=== PATIENT | female | born 2000 | race Two or more races ===

== ENCOUNTER 2024-11-25 08:16 | Outpatient (AMB) | payer BC, SELFPAY ==
[2024-11-25 08:30] VITALS: BP 107/74; PULSE 75; RESP 17; TEMP 37.1; O2SAT 98; BMI 26.8
--- NOTE | 2024-11-25 08:30 | AMB.GYNCLNOT ---
Vital Signs 11/25/24 08:30 Height 1.45 m Height Method Stated Weight 56.245 kg Weight Measurement Method Standing Scale BMI 26.8 BP 107/74 Blood Pressure Source Automatic Cuff Blood Pressure Location Right Upper Arm Position Sitting Respiration 17 Pulse 75 Pulse Source Monitor Temp 98.7 F Temp Source Temporal Artery Scan Pulse Oximetry (%) 98 Oxygen Delivery Method Room Air Allergies/Home Meds Allergies & Medications Allergies morphine Allergy (Intermediate, Uncoded 11/25/24 08:31) racoon face Medication Reconciliation polyethylene glycol 3350 17 gram/dose oral powder (Miralax) 4 g PO QDAY 11/25/24 [History Confirmed 11/25/24] Intake Visit Data Collection New Patient or Established: New Patient (never been to [facility]) Reason for Visit:: ANNEALED LABIA & HEMATOCOLPOS THIRD OPINION Seen by Clinical Staff ONLY (RN/MA): No Instructor Substitute Cosmetology Required: No Do You Feel Safe at Home: Yes Authorities Contacted: N/A PCP or OBGYN visit in last 3 months: No Hx Now: No Are you currently on any form of Control: Yes Pain Present Currently: No Pain Scale Used: Barnett-Sherwood/Numerical Pain scale:: 0 Smoking Status Smoking Status: Never smoker 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 1. Little interest or pleasure in doing things: not at all 2. Feeling down, depressed, or hopeless: not at all Total score: 0 PHQ-9 3. Trouble falling or staying asleep, or sleeping too much: Not at all 4. Feeling tired or having little energy: Not at all 5. Poor appetite or overeating: Not at all 6. Feeling bad about yourself - or that you are a failure or have let yourself or your family down: Not at all 7. Trouble concentrating on things, such as reading the newspaper or watching television: Not at all 8. Moving or speaking so slowly that other people could have noticed? - Or the opposite - being so fidgety or restless that you have been moving around a lot more than usual: not at all 9. Thoughts that you would be better off or of hurting yourself in some way: Not at all Total score: 0 If you checked off any problems, how difficult have these problems made it for you to do your work, take care of things at home, or get along with other people?: not difficult at all Source: Developed by Drs. Cachorro Zhou, Mague Pacheco, Dilan Crook and colleagues, with an educational brian from [employer]. Depression screen completed yes Social History Living Situation History Marital Status: Unknown Lives With: Family Housing: House Tobacco History Smoking Status: Never smoker Second Hand Smoke Exposure: No Alcohol History Alcohol Intake: Never Domestic Abuse History Do You Feel Safe at Home: Yes History of Present Illness HPI Narrative Franny Spencer, a 14-month patient with a cardiac condition, presents with complications from a severe perineal tear during vaginal delivery. The patient reports that during her delivery on September 23 of the previous year, she experienced significant tearing, which led to excessive bleeding. The attending physician attempted to stop the bleeding but inadvertently sewed the patient all the way up, resulting in fusion of the torn tissues during healing. Three months post-delivery, when attempting to get a pap smear, it was discovered that the vaginal opening was completely closed. Dr. Romano made a small incision, which released a large amount of accumulated menstrual blood. The patient was then referred to Dr. Shaw, her primary farm crew leader, who was unable to provide further treatment and suggested going to the ER if problems persisted. The patient reports that she has not had any imaging studies done since the delivery. She expresses frustration with the lack of proper follow-up care and the prolonged duration of her condition. The patient's mother, who accompanies her, confirms the details of the medical history and expresses concern about the backed-up menstrual blood and the need for urgent intervention. The patient's cardiac condition is noted as a limiting factor for future pregnancies, with her center aisle cashier advising against natural childbirth in the future due to the associated stress on her heart. Obstetric History: - GTPAL: G1 T1 L1 - history: - Delivered a child 14 months ago (September 24, 2023) via vaginal delivery - Complications: severe perineal tear with significant bleeding - Delivered by Dr. Brea Clemens Medical History: - Cardiac issue (unspecified) Surgical History: - Vaginal delivery on September 24, 2023, complicated by severe perineal tear and subsequent over-repair leading to complete closure of the vaginal opening - Minor surgical procedure 3 months post-delivery (December 2023) to create a small opening in the fused vaginal tissue, performed by Dr. Romano Social History: - Children: Has a 85-[id number] child ROS: Genitourinary: Positive for menstrual blood backing up. Exam Narrative Physical exam: Complete agglutination of labia minora with pinpoint opening with hematocolpos General General Appearance: alert, in no apparent distress and healthy appearing Head Head exam: atraumatic Neck Neck exam: Present normal inspection and trachea midline Chest Chest inspection: Present normal inspection and symmetric chest wall rise External exam: Present normal external exam; Absent tenderness Neuro Neurological exam: Present oriented X3 Psych Psychiatric exam: Present normal affect and normal mood Office Procedures OB Clinic LOC & Office Proc's Nursing/Assessment Patient Status: Initial/New Patient OB Clinic Nursing Assessment: Medication Reconciliation, Update PMH in EMR and Vital Signs OB Clinic Coordination of Care: Complex Care and Chronic Disease 1-5, Consent,records obtained, informed consent, Education Simp Pt/Fam, Lab and Imaging orders and Staff clarify orders New Patient Charge New Patient Point Assignment: 1099 New Patient Point Charge: RESIDENCE HALL DIRECTOR Level 3 (4559-7970) Assessment & Plan Diagnosis / Problem List (1) Labial adhesion, acquired: Status: Acute (2) Disruption of perineal obstetric wound: Status: Acute Plan perineal fusion with hematocolpos Assessment: - Severe perineal tearing during vaginal delivery on September 24, 2023 - Fusion of vaginal tissues during healing - Prevented normal menstrual flow, causing hematocolpos - Previous attempt to create opening released retained menstrual blood - Condition persisted for over a year without definitive treatment - Visual examination confirms fusion of vaginal tissues Plan: - Schedule urgent surgical reconstruction under general anesthesia - Preoperative placement of urinary catheter for bladder marking - Surgical separation of fused tissues - Debridement and fresh repair of perineal tissues - Placement of intravaginal packing to prevent re-fusion during healing - Gradual removal of packing as healing progresses - Anticipate 2-3 weeks recovery time - Patient education provided on postoperative expectations: ? Ability to ambulate ? Use of sanitary pads ? Driving permitted - Informed consent obtained, discussing risks, benefits, and alternatives of the procedure - Follow-up to be scheduled after surgery for packing removal and healing assessment Cardiac condition Assessment: - Patient reports cardiac condition precludes future pregnancies due to associated stress - Condition initially warranted consideration of section for previous delivery Plan: - Recommend against future pregnancies due to cardiac condition - Advise section for any potential future deliveries, if occurs despite recommendations
== END 2024-11-25 09:31 | disposition home or self-care (01) ==
LOC: HODSOBC 08:16
PROVIDERS: Supervising Provider Obstetrics & Gynecology; Visit Provider Obstetrics & Gynecology
DX: O90.1 Disruption of perineal obstetric wound (principal)
CPT/HCPCS: 99203; G0463

== ENCOUNTER 2024-12-12 12:22 | Observation (INO) | payer BC, SELFPAY ==
[2024-12-11 08:32] VITALS: BMI 25.8
--- NOTE | 2024-12-11 08:58 | EKG_ITS ---
[facility] Test Date: 2024-12-11 Pat Name: PARAG LINN Department: Room: - Gender: Female Flower Stripper: ELIZABETH : 2000 Requested By: Rosendo Peralta Order Number: [id number] Reading MD: Rsoendo Peralta Measurements Intervals Marine Rate: 63 P: 40 MT: 119 QRS: 74 QRSD: 101 T: 54 QT: 410 QTc: 421 Interpretive Statements SINUS RHYTHM WITH SHORT MT INTERVAL No previous ECG available for comparison /store/S0/[id number]/ecg/[id number].pdf
[2024-12-11 09:22] LABS: Basophils # (Auto) 0.0 Thou/mm3 (0.0-0.2); Basophils % (Auto) 1 % (0-2.5); Eosinophils # (Auto) 0.3 Thou/mm3 (0.0-0.5); Eosinophils % (Auto) 4 % (0-10); Hematocrit 38.3 % (36.0-46.0); Hemoglobin 11.8 g/dL (12.0-16.0); Immature Granulocytes Auto 0.01 Thou/mm3 (0.00-0.00); Lymphocytes # (Auto) 1.7 Thou/mm3 (1.0-4.8); Lymphocytes % (Auto) 27 % (10-50); Mean Corpuscular HGB Conc 30.8 g/dl (31.0-37.0); Mean Corpuscular Hemoglobin 23.5 pg (25.0-35.0); Mean Corpuscular Volume 76 fL (80-100); Monocytes # (Auto) 0.3 Thou/mm3 (0.0-0.8); Monocytes % (Auto) 5 % (0-12); Neutrophils # (Auto) 4.0 Thou/mm3 (1.8-7.7); Neutrophils % (Auto) 63 % (37-80); Nucleated Red Blood Cell # 0.00 Thou/mm3 (0.00-0.00); Nucleated Red Blood Cell % 0 /100 WBC (0); Platelet Count 323 Thou/mm3 (140-440); RDW Standard Deviation 44.1 fL (36.4-46.3); Red Blood Count 5.03 Miln/mm3 (4.00-5.20); White Blood Count 6.4 Thou/mm3 (3.6-11.0)
[2024-12-11 09:40] LABS: HCG,Qualitative Serum Negative
[2024-12-11 09:47] LABS: Alanine Aminotransferase 12 U/L (10-49); Albumin, Serum 4.4 gm/dL (3.5-5.0); Albumin/Globulin Ratio 1.5 (1.2-2.2); Alkaline Phosphatase 78 U/L (46-116); Anion Gap 9 (7-16); Aspartate Amino Transferase 20 U/L (0-34); BUN/Creatinine Ratio 14 Ratio (12-20); Bilirubin,Total 1.0 mg/dL (0.3-1.2); Blood Urea Nitrogen 11 mg/dL (9-23); Calcium 9.1 mg/dL (8.3-10.6); Calcium (Corrected) 9.1 mg/dL (8.5-10.1); Carbon Dioxide 24.0 mMol/L (20.0-31.0); Chloride 108 mMol/L (98-107); Creatinine (Component) 0.8 mg/dL (0.6-1.3); Estimated Creatinine Clearance 81.8 mL/min (>60); Globulin 2.9 gm/dL (2.3-3.5); Glucose 88 mg/dL (74-106); Osmolality,Calculated 279 (275-295); Potassium 3.6 mMol/L (3.4-5.1); Sodium 141 mMol/L (136-145); Total Protein 7.3 gm/dL (5.7-8.2); eGFR > 60 See Note
--- NOTE | 2024-12-11 13:57 | SUR.PREOP ---
Cardiac history and records reviewed with Dr Yuan.
[2024-12-12] VITALS (13 sets, daily range): BP systolic 95–114; BP diastolic 57–75; PULSE 71–89; RESP 12–17; TEMP 36.1–36.8; O2SAT 97–100; BMI 32.1
--- NOTE | 2024-12-12 09:56 | ESHP_ITS ---
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 The patient reports that during her delivery on Sep 24 2023, she experienced significant tearing, which led to excessive bleeding. The attending physician attempted to stop the bleeding but inadvertently sewed the patient all the way up, resulting in fusion of the torn tissues during healing. Three months post-delivery, when attempting to get a pap smear, it was discovered that the vaginal opening was completely closed. Dr. Romano made a small incision, which released a large amount of accumulated menstrual blood. The patient was then referred to Dr. Shaw, her primary composite boat builder, who was unable to provide further treatment and suggested going to the ER if problems persisted. The patient reports that she has not had any imaging studies done since the delivery. She expresses frustration with the lack of proper follow-up care and the prolonged duration of her condition. The patient's mother, who accompanies her, confirms the details of the medical history and expresses concern about the backed-up menstrual blood and the need for urgent intervention. The patient's cardiac condition is noted as a limiting factor for future pregnancies, with her continuous process rotary drum tanner advising against natural childbirth in the future due to the associated stress on her heart. Medical History: - Cardiac issue (unspecified) Surgical History: - Vaginal delivery on September 24, 2023, complicated by severe perineal tear and subsequent over-repair leading to complete closure of the vaginal opening - Minor surgical procedure 3 months post-delivery (December 2023) to create a small opening in the fused vaginal tissue, performed by Dr. Romano Social History: - Children: Has a 65-olhpo-txe child ROS: Genitourinary: Positive for menstrual blood backing up. Meds Home Medications and Allergies Home Medications ?Medication ?Instructions ?Recorded ?Confirmed ?Type polyethylene glycol 3350 17 4 g PO QDAY 11/25/2412/11 History gram/dose oral powder (Miralax) Allergies Allergy/AdvReac Type Severity Reaction Status Date / Time morphine Allergy Intermediate racoon Uncoded 12/12/24 08:49 face Exam - WATER SOFTENER INSTALLER Vital Signs Temp Pulse Resp BP Pulse Ox 98.3 F 79 14 106/66 100 12/12/24 09:05 12/12/24 09:05 12/12/24 09:05 12/12/24 09:05 12/12/24 09:05 Constitutional Constitutional: no acute distress Routine HEENT Exam Head: Present normocephalic and atraumatic Eye: Present EOMI and PERRL ENT: Present mucous membranes moist Routine Neck Exam Neck: Present supple and trachea midline Routine Respiratory Exam Respiratory: Present chest non-tender, lungs clear, normal breath sounds and no resp distress Routine Cardiovascular Exam Cardiovascular: Present RRR Routine Abdominal Exam Abdominal: Present soft and normoactive bowel sounds Routine Exam Comments: Complete agglutination of labia with pinpoint opening Routine Extremities Exam Extremities: Present full ROM Routine Skin Exam Skin: Present intact and dry Routine Neurological Exam Neurological: Present alert, oriented X3 and CN II-XII intact Routine Psychiatric Exam Psychiatric: Present normal affect and normal thought process WATER SOFTENER INSTALLER - Results Labs 12/11/24 08:59 12/11/24 08:59 Assessment and Plan Assessment and plan (1) Personal history of other complications of , childbirth and the puerperium: Status: Acute (2) Other specified conditions associated with female genital organs and menstrual cycle: Status: Acute (3) Stricture of vulva: Status: Acute Assessment and plan: - Scheduled for urgent surgical reconstruction under general anesthesia - Preoperative placement of urinary catheter for bladder marking - Surgical separation of fused tissues - Debridement and fresh repair of perineal tissues - Placement of intravaginal packing to prevent re-fusion during healing - Gradual removal of packing as healing progresses - Anticipate 2-3 weeks recovery time - Patient education provided on postoperative expectations: ? Ability to ambulate ? Use of sanitary pads ? Driving permitted - Informed consent obtained, discussing risks, benefits, and alternatives of the procedure - Follow-up to be scheduled after surgery for packing removal and healing assessment Quality Measures Quality Measures VTE prophylaxis
--- NOTE | 2024-12-12 12:25 | ESOP_ITS ---
Operative Note - SOLARIS ADMINISTRATOR Procedure Date of procedure: 12/12/24 Procedure Performed: Exam under anesthesia, separation of labial agglutination with perineal repair and perineoplasty Indication: 24-year-old with labial agglutination status post large laceration repair during vaginal delivery at outside hospital Post-Op diagnosis: Same as preop Anesthesia type: General Procedure description: Consent was obtained the patient was taken to the operating room. Identity was covered apparent which was placed on the operating table. General anesthesia was administered and patient was positioned in the dorsal lithotomy position. The perineum was prepped in the usual sterile fashion and sterile drapes were applied. A Lala catheter was placed to continuous drainage. Initially and examined anesthesia was performed to determine the extent of labial agglutination. There was a small pinpoint opening at the anteriormost aspect overlying the urethra through which a probe could be introduced into the vagina. The tract was probed and then later palpated with a gloved finger and it was determined to cover the entire vaginal introitus. The back of a faricimab forcep was introduced into the tract and longitudinal incision was made taking care to protect the underlying structures. Bands of scar tissue and adhesions were taken down using a combination of Bovie as well as blunt and sharp dissection. Once the normal vaginal canal was visualized thick scar tissue was noted at what would be the site of a right mediolateral laceration/episiotomy. Excess scar tissue was trimmed off. A cortez-shaped piece of vaginal mucosa and skin was now excised from the perineal skin. The perineum was now repaired in the usual fashion using 2-0 Vicryl. Bleeding points were all cauterized. Premarin cream was applied and a vaginal packing was placed in the vagina. All the repair sites were now visualized. 2 fingers were easily introduced into the vaginal introitus and the cervix was easily palpable. All instruments were now withdrawn. The perineum was thoroughly cleaned. General anesthesia was reversed and the patient was taken to the recovery room in a stable and awake condition. Patient tolerated the entire procedure well. No complications were encountered. Estimated blood loss (ml): 5 Complications: none Surgical staff Operation Date: 12/12/24 10:45 <No data on this case meets the specified criteria> Diagnosis Discharge Diagnosis (1) Personal history of other complications of , childbirth and the puerperium: Status: Acute (2) Labial adhesion, acquired: Status: Acute (3) Stricture of vulva: Status: Acute Problem List Completed Was Problem List Reviewed/Reconciled?: Yes
--- NOTE | 2024-12-12 12:26 | SUR.PHASEI ---
pt arrived to PACU via gurney with oral airway present, breathing unlabored, vaginal packing in place with peripad-clean and dry, report from Doris BARBOSA, and Dr Yuan
--- NOTE | 2024-12-12 13:00 | SUR.PHASEI ---
report to Lolly Kwong RN
--- NOTE | 2024-12-12 13:00 | SUR.PHASEI ---
1300 report received from Lolly Bryson RN
[2024-12-12] MEDS: fentaNYL CIT INJ 50 mCg/ML AMP 2ML 25 MCG IVP (13:07)
--- NOTE | 2024-12-12 13:44 | SUR.PHASEII ---
updated patient mother on patient, all question answer, mother walked back to recovery and saw patient sleeping, returned to waiting room to allow patient to sleep
--- NOTE | 2024-12-12 13:53 | SUR.PHASEII ---
patients mom and sister at bedside
--- NOTE | 2024-12-12 14:42 | SUR.PHASEII ---
1439 Report given to Jennifer BARBOSA, patient meets discharge criteria from recovery, awake and alert, breathing unlabored, vital signs stable, denies pain, dressing intact; no bleeding noted, urinary catheter in place with leg secure; draining to gravity, patient eating drinking apple juice tolerating well, denies nausea. 1441 Patient mother notified of patients med-surg room number, mother states she would be coming to the hospital soon as she had left to take her daughter home. 1442 Patient transported via gurney to room 358 without incident.
--- NOTE | 2024-12-12 15:00 | PC.NURSE ---
PATIENT IN BED ALERT AND ORIENTED X3
[2024-12-12] MEDS: ACETAMINOPHEN IVPB 1,000 MG/100 ML VIAL 250 MG IV (17:14)
--- NOTE | 2024-12-12 20:20 | PC.NURSE ---
called regarding patient had an episode of emesis of brown/green with food, about 400cc out, per patient feels better , does not feel lightheaded or nauseous, vitals are stable, reports some pain at surgery site, Per doctor okay to DC patient. Educated patient if symptoms worsen to come back to ER. Patient agreeable.
--- NOTE | 2024-12-12 20:35 | PC.NURSE ---
patient discharged to home, off floor at 2024 via wheelchair, trejo removed, IV removed. Patient voided port removal of trejo. Discharge packet and instructions given. Dr. Briggs saw patient prior to discharge, patient has no further questions. Patient left via personal vehicle.
== END 2024-12-12 20:25 | disposition home or self-care (01) ==
LOC: S3NX 19:07
PROVIDERS: Admitting Provider Obstetrics & Gynecology; PCP Registered Nurse Community Health; Referring Provider Obstetrics & Gynecology; Visit Provider Specialist
PROC: (CPT 56810; principal; 2024-12-12 10:30)
DX: N90.89 Other specified noninflammatory disorders of vulva and perineum (principal); N90.5 Atrophy of vulva; Z01.810 Encounter for preprocedural cardiovascular examination
CPT/HCPCS: 56810; 36415; 80053; 84703; 85025; 86850; 86900; 86901; 93005; 96374; A4217; A4649; G0378; J0131; J0690; J1100; J2250; J2405; J2704; J3010; A9270

== ENCOUNTER 2025-01-03 08:28 | Outpatient (AMB) | payer BC, SELFPAY ==
[2025-01-03 08:37] VITALS: BP 107/72; PULSE 82; RESP 17; TEMP 36.4; O2SAT 98; BMI 32.1
--- NOTE | 2025-01-03 08:37 | AMB.GYNCLNOT ---
Vital Signs 01/03/25 08:37 Height 1.31 m Height Method Measured Weight 55.055 kg Weight Measurement Method Standing Scale BMI 32.1 BP 107/72 Blood Pressure Source Automatic Cuff Blood Pressure Location Right Upper Arm Position Sitting Respiration 17 Pulse 82 Pulse Source Monitor Temp 97.6 F Temp Source Temporal Artery Scan Pulse Oximetry (%) 98 Oxygen Delivery Method Room Air Allergies/Home Meds Allergies & Medications Allergies morphine Allergy (Intermediate, Uncoded 01/03/25 08:37) racoon face Medication Reconciliation polyethylene glycol 3350 17 gram/dose oral powder 4 g PO QDAY 30 days #119 grams 12/12/24 [Rx Confirmed 01/03/25] Intake Visit Data Collection New Patient or Established: Established Patient (seen at [facility] within 3 years) Reason for Visit:: POST-OP Consent obtained for Telemed Visit: No Seen by Clinical Staff ONLY (RN/MA): No Truck Hop Required: No Do You Feel Safe at Home: Yes Authorities Contacted: N/A PCP or OBGYN visit in last 3 months: Yes Date of Last PCP or OBGYN visit: 12/12/24 Hx Now: No Are you currently on any form of Control: No Pain Present Currently: No Pain Scale Used: Barnett-Sherwood/Numerical Pain scale:: 0 Smoking Status Smoking Status: Never smoker Managed Care Coordinator history Managed Care Coordinator History Menstrual regularity: regular Flow: light Monthly: Yes Age at menarche: 16 Menopausal: No Currently sexually active: No HAND 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 1. Little interest or pleasure in doing things: not at all PHQ-9 8. Moving or speaking so slowly that other people could have noticed? - Or the opposite - being so fidgety or restless that you have been moving around a lot more than usual: not at all Source: Developed by Drs. Cachorro Zhou, Mague Pacheco, Dilan Crook and colleagues, with an educational brian from [employer]. Social History Living Situation History Lives With: Family Housing: House Tobacco History Smoking Status: Never smoker Second Hand Smoke Exposure: No Alcohol History Alcohol Intake: Never Domestic Abuse History Do You Feel Safe at Home: Yes History of Present Illness HPI Narrative Franny Spencer presents for a follow-up visit after a recent surgical procedure. She reports that all her stitches have healed well and she is ready to return to work. The patient denies any current issues or complications related to her recent procedure. Ms. Spencer is seeking clearance to return to work on January 12. She does not report any need for special care or ongoing treatment. The patient confirms that the surgical site has healed completely and feels normal. No specific complaints or symptoms are mentioned during this visit. She is planning to return to work on January 12. ROS: Negative except as stated above, limited to HAND CLERICAL VERIFIER and pertinent complaints. Exam General General Appearance: alert, in no apparent distress and healthy appearing Head Head exam: atraumatic Neck Neck exam: Present normal inspection and trachea midline Chest Chest inspection: Present normal inspection and symmetric chest wall rise External exam: Present normal external exam; Absent tenderness Neuro Neurological exam: Present oriented X3 Psych Psychiatric exam: Present normal affect and normal mood Office Procedures OB Clinic LOC & Office Proc's Nursing/Assessment Patient Status: Established Patient OB Clinic Nursing Assessment: Medication Reconciliation, Update PMH in EMR and Vital Signs OB Clinic Coordination of Care: Complex Care and Chronic Disease 1-5, Consent,records obtained, informed consent, Education Simp Pt/Fam and 4+ Authorizations needed Established Patient Charge Established Patient Point Assignment: 100 Established Patient Point Charge: EP Level 3 (80-115) Assessment & Plan Diagnosis / Problem List (1) Personal history of other complications of , childbirth and the puerperium: Status: Acute (2) Disruption of perineal obstetric wound: Status: Acute Plan Post-operative Recovery: - Status post recent surgery with healed stitches. - Patient reports all stitches have healed well with no current issues. - Ready to return to work and requests clearance. Plan: - Provide work clearance letter for return to work on January 12, 2025. - Advised patient to return if any issues arise. - Reassured patient that once the surgical area heals completely, it should return to normal function.
== END 2025-01-03 09:20 | disposition home or self-care (01) ==
LOC: HODSOBC 08:28
PROVIDERS: PCP Registered Nurse Community Health; Referring Provider Registered Nurse Community Health; Supervising Provider Obstetrics & Gynecology; Visit Provider Obstetrics & Gynecology
DX: O90.1 Disruption of perineal obstetric wound (principal); Z87.59 Personal history of other complications of pregnancy, childbirth and the puerperium; Z88.5 Allergy status to narcotic agent
CPT/HCPCS: 99213; G0463